=== PATIENT | female | born 1950 | race Caucasian/White ===

== ENCOUNTER 2017-04-03 23:59 | Emergency (ER) | payer MEDICARE, MEDICAID ==
[~2017-04-03] VITALS: Ht 170.2 cm; Wt 102.0 kg
[~2017-04-03 23:59] MED LIST: ASPI-556 PO; AZIT250T9 PO; FURO40 PO; HYDR25TA PO; LISI-660 PO; LOVA20 PO; METF500T4 PO; METO-408 PO; POTA8CAP10 PO
[2017-04-04 01:09] LABS: INFLUENZA TYPE A NEGATIVE FOR TYPE A (NEGATIVE); INFLUENZA TYPE B NEGATIVE FOR TYPE B (NEGATIVE)
[2017-04-04 02:50] VITALS: BP 110/72
== END 2017-04-04 03:20 | disposition home or self-care (01) ==
LOC: EMS 04-04
DX: J40 Bronchitis, not specified as acute or chronic (principal); R60.0 Localized edema; E78.00 Pure hypercholesterolemia, unspecified; I11.9 Hypertensive heart disease without heart failure; Z79.82 Long term (current) use of aspirin
CPT/HCPCS: 87804; 99285

== ENCOUNTER 2018-03-29 21:19 | Emergency (ER) | payer MEDICARE, MEDICAID ==
[~2018-03-29] VITALS: Ht 172.7 cm; Wt 104.5 kg
[~2018-03-29 21:19] MED LIST changes: +METF-960 PO; -METF500T4 PO
[2018-03-29 21:39] LABS: GLUCOSE,POINT OF CARE 137 MG/DL (70-110)
[2018-03-29] MEDS ORDERED: LEVO75 PO (21:42)
[2018-03-29 22:06] LABS: BASOPHILS % (AUTO) 0.2 % (0.0-2.0); EOSINOPHILS % (AUTO) 2.4 % (1.0-6.0); HEMATOCRIT 36.5 % (36-46); HEMOGLOBIN 11.8 g/dL (12.0-16.0); LYMPHOCYTES # (AUTO) 2.8 K/uL (1.0-4.8); LYMPHOCYTES % (AUTO) 30.7 % (22.0-44.0); MEAN CORPUSCULAR HEMOGLOBIN 23.7 pg (26.0-34.0); MEAN CORPUSCULAR HGB CONC 32.2 G/dL (31.0-37.0); MEAN CORPUSCULAR VOLUME 74 fL (80-100); MONOCYTES # (AUTO) 0.8 K/uL (0.1-1.0); MONOCYTES % (AUTO) 8.2 % (2.0-9.0); NEUTROPHILS # (AUTO) 5.4 K/uL (1.8-7.7); NEUTROPHILS % (AUTO) 58.5 % (40.0-70.0); PLATELET COUNT (AUTO) 440 K/uL (150-450); RED BLOOD CELL COUNT(AUTO) 4.96 MIL/uL (4.00-5.20); RED CELL DISTRIBUTION WIDTH 17.2 % (11.5-14.5)
[2018-03-29 22:16] LABS: CREATININE 1.47 mg/dL (0.60-1.30); POTASSIUM 3.1 mmol/L (3.5-5.1)
[2018-03-29 22:22] LABS: ALBUMIN 3.4 g/dL (3.4-5.0); BILIRUBIN,TOTAL 0.2 mg/dL (0.1-1.0); TOTAL PROTEIN, SERUM 7.7 g/dL (6.4-8.2)
[2018-03-30] MEDS ORDERED: ONDANSETRON HCL 4 MG/2 ML VIAL IVP ONE (01:00)
[2018-03-30] MEDS ORDERED: FentaNYL CITRATE-PF 100 MCG/2 ML VIAL IVP ONE (01:00)
[2018-03-30] MEDS ORDERED: MAG HYDROX/AL HYDROX/SIMETH ES 30 ML SUSPENSION UDCUP PO ONE (03:00)
[2018-03-30] MEDS ORDERED: FAMOTIDINE 20 MG TABLET PO ONE (03:00)
[2018-03-30 03:28] VITALS: BP 146/67
[2018-03-30] MEDS ORDERED: POTASSIUM CHLORIDE 10% 40 MEQ/30 ML LIQUID UDCUP PO ONE (03:45)
== END 2018-03-30 04:05 | disposition home or self-care (01) ==
LOC: EMS 21:20
DX: K29.70 Gastritis, unspecified, without bleeding (principal); E87.6 Hypokalemia; E11.9 Type 2 diabetes mellitus without complications; I11.9 Hypertensive heart disease without heart failure; I25.2 Old myocardial infarction; F32.9 Major depressive disorder, single episode, unspecified; M19.90 Unspecified osteoarthritis, unspecified site; E03.9 Hypothyroidism, unspecified; Z86.73 Personal history of transient ischemic attack (TIA), and cerebral infarction without residual deficits; Z79.82 Long term (current) use of aspirin; Z79.899 Other long term (current) drug therapy; Z79.84 Long term (current) use of oral hypoglycemic drugs
CPT/HCPCS: 36415; 74022; 76700; 80053; 82962; 83690; 84484; 85025; 93005; 96374; 96375; 99284; J2405; J3010

== ENCOUNTER 2019-02-10 06:01 | Emergency (ER) | payer MEDICARE, MEDICAID ==
[~2019-02-10] VITALS: Ht 172.7 cm; Wt 100.0 kg
[~2019-02-10 06:01] MED LIST changes: -AZIT250T9 PO; -FURO40 PO; +LEVO75 PO; -POTA8CAP10 PO
[2019-02-10] MEDS ORDERED: FERR-89 PO (06:28)
[2019-02-10] MEDS ORDERED: CHL25 PO (06:28)
[2019-02-10] MEDS ORDERED: CA C1TAB95 PO (06:28)
[2019-02-10] MEDS ORDERED: METO25 PO (06:28)
[2019-02-10] MEDS ORDERED: LISI-662 PO (06:28)
[2019-02-10] MEDS ORDERED: KDUR10 PO (06:28)
[2019-02-10] MEDS ORDERED: LEVO50 PO (06:28)
[2019-02-10] MEDS ORDERED: TRAM50TA4 PO (06:28)
[2019-02-10] MEDS ORDERED: DOCU-275 PO (06:28)
[2019-02-10] MEDS ORDERED: FAMO20 PO (06:28)
[2019-02-10 07:43] LABS: BASOPHILS % (AUTO) 1.2 % (0.0-2.0); EOSINOPHILS % (AUTO) 3.4 % (1.0-6.0); HEMATOCRIT 38.8 % (36-46); HEMOGLOBIN 12.4 g/dL (12.0-16.0); LYMPHOCYTES # (AUTO) 2.3 K/uL (1.0-4.8); LYMPHOCYTES % (AUTO) 34.6 % (22.0-44.0); MEAN CORPUSCULAR HEMOGLOBIN 25.9 pg (26.0-34.0); MEAN CORPUSCULAR VOLUME 81 fL (80-100); MONOCYTES # (AUTO) 0.7 K/uL (0.1-1.0); MONOCYTES % (AUTO) 9.9 % (2.0-9.0); NEUTROPHILS # (AUTO) 3.4 K/uL (1.8-7.7); NEUTROPHILS % (AUTO) 50.9 % (40.0-70.0); PLATELET COUNT (AUTO) 337 K/uL (150-450); RED CELL DISTRIBUTION WIDTH 21.5 % (11.5-14.5)
[2019-02-10 07:50] LABS: CALCIUM, TOTAL 8.7 mg/dL (8.8-10.5); CREATININE 1.1 mg/dL (0.60-1.30); POTASSIUM 3.4 mmol/L (3.5-5.1)
[2019-02-10 07:58] LABS: ALBUMIN 3.1 g/dL (3.4-5.0); BILIRUBIN,TOTAL 0.2 mg/dL (0.1-1.0); TOTAL PROTEIN, SERUM 6.8 g/dL (6.4-8.2)
[2019-02-10] MEDS ORDERED: GuaiFENesin/D-METHORPHAN [SUGAR-FREE] 200-20MG/10 ML SYRUP UDCUP PO ONE (08:15)
[2019-02-10] MEDS ORDERED: ACETAMINOPHEN 500 MG TABLET PO ONE (08:15)
[2019-02-10 08:28] VITALS: BP 129/70
== END 2019-02-10 08:30 | disposition home or self-care (01) ==
LOC: EMS 06:01
DX: J06.9 Acute upper respiratory infection, unspecified (principal); J20.9 Acute bronchitis, unspecified; E11.9 Type 2 diabetes mellitus without complications; E03.9 Hypothyroidism, unspecified; E78.00 Pure hypercholesterolemia, unspecified; I11.0 Hypertensive heart disease with heart failure; I50.9 Heart failure, unspecified; I25.2 Old myocardial infarction; M19.90 Unspecified osteoarthritis, unspecified site; F19.10 Other psychoactive substance abuse, uncomplicated; Z98.890 Other specified postprocedural states; Z86.73 Personal history of transient ischemic attack (TIA), and cerebral infarction without residual deficits; Z79.899 Other long term (current) drug therapy; Z79.82 Long term (current) use of aspirin
CPT/HCPCS: 93005

== ENCOUNTER 2019-02-17 13:24 | Emergency (ER) | payer MEDICARE, MEDICAID ==
[~2019-02-17] VITALS: Ht 172.7 cm; Wt 100.0 kg
[~2019-02-17 13:24] MED LIST changes: +CA C1TAB95 PO; +CHL25 PO; +DOCU-275 PO; +FAMO20 PO; +FERR-89 PO; -HYDR25TA PO; +KDUR10 PO; +LEVO50 PO; -LEVO75 PO; -LISI-660 PO; +LISI-662 PO; -METO-408 PO; +METO25 PO; +TRAM50TA4 PO
[2019-02-17 13:42] LABS: GLUCOSE,POINT OF CARE 100 MG/DL (70-110)
[2019-02-17 15:28] LABS: BASOPHILS % (AUTO) 1.1 % (0.0-2.0); EOSINOPHILS % (AUTO) 3.5 % (1.0-6.0); HEMATOCRIT 42.8 % (36-46); HEMOGLOBIN 13.9 g/dL (12.0-16.0); LYMPHOCYTES # (AUTO) 2.8 K/uL (1.0-4.8); LYMPHOCYTES % (AUTO) 31.8 % (22.0-44.0); MEAN CORPUSCULAR HEMOGLOBIN 26.4 pg (26.0-34.0); MEAN CORPUSCULAR HGB CONC 32.6 G/dL (31.0-37.0); MEAN CORPUSCULAR VOLUME 81 fL (80-100); MONOCYTES # (AUTO) 0.7 K/uL (0.1-1.0); MONOCYTES % (AUTO) 7.8 % (2.0-9.0); NEUTROPHILS # (AUTO) 4.9 K/uL (1.8-7.7); NEUTROPHILS % (AUTO) 55.8 % (40.0-70.0); PLATELET COUNT (AUTO) 371 K/uL (150-450); RED BLOOD CELL COUNT(AUTO) 5.28 MIL/uL (4.00-5.20); RED CELL DISTRIBUTION WIDTH 21.2 % (11.5-14.5)
[2019-02-17] MEDS ORDERED: DiphenhydrAMINE HCL 50 MG CAPSULE PO ONE (15:30)
[2019-02-17] MEDS ORDERED: ALBUTEROL SULFATE HFA 90 MCG/PUFF 8 GM INHALER IH ONE (15:30)
[2019-02-17] MEDS ORDERED: SLOWK8 PO (15:33)
[2019-02-17 15:42] LABS: CREATININE 1.3 mg/dL (0.60-1.30); POTASSIUM 4.1 mmol/L (3.5-5.1)
[2019-02-17 15:48] LABS: ALBUMIN 3.6 g/dL (3.4-5.0); BILIRUBIN,TOTAL 0.1 mg/dL (0.1-1.0); TOTAL PROTEIN, SERUM 7.6 g/dL (6.4-8.2)
[2019-02-17 17:01] VITALS: BP 122/81
== END 2019-02-17 17:02 | disposition home or self-care (01) ==
LOC: EMS 13:25
DX: J98.01 Acute bronchospasm (principal); J02.9 Acute pharyngitis, unspecified; T36.1X5A Adverse effect of cephalosporins and other beta-lactam antibiotics, initial encounter; E11.9 Type 2 diabetes mellitus without complications; E03.9 Hypothyroidism, unspecified; E78.00 Pure hypercholesterolemia, unspecified; I11.0 Hypertensive heart disease with heart failure; I50.9 Heart failure, unspecified; I25.2 Old myocardial infarction; M19.90 Unspecified osteoarthritis, unspecified site; F32.9 Major depressive disorder, single episode, unspecified; F19.10 Other psychoactive substance abuse, uncomplicated; Z98.890 Other specified postprocedural states; Z86.73 Personal history of transient ischemic attack (TIA), and cerebral infarction without residual deficits; Z95.1 Presence of aortocoronary bypass graft; Z79.899 Other long term (current) drug therapy; Z79.82 Long term (current) use of aspirin; Y92.89 Other specified places as the place of occurrence of the external cause
CPT/HCPCS: 87040; 93005; 94640; J3535